=== PATIENT | male | born 2000 | race Caucasian/White ===

== ENCOUNTER 2021-01-14 23:26 | Emergency (ER) | payer OTHER ==
[~2021-01-14] VITALS: Ht 185.4 cm; Wt 79.4 kg
[2021-01-14 23:33] VITALS: BP_SYST 132
--- NOTE | 2021-01-14 23:33 | NUR ---
Patient to ER bed 2 to gown for evaluation. Side rails up. Report given to KAREEM DELACRUZ .
--- NOTE | 2021-01-14 23:49 | NUR ---
DR. HOLMAN AT BEDSIDE FOR EVALUATION.
--- NOTE | 2021-01-14 23:50 | NUR ---
Pt BIB family to ED C/O abrupt onset of periumbilical pain with sitting on the commode urinating at home approximately 10 minutes prior to ED arrival. Pain is sharp, radiates through to his spine, and also radiates straight down into the infraumbilical area. Pain was initially 8 out of 10, and is at about 5 out of 10 now: While it persists, it has declined in intensity. It is accompanied by nausea and mild dizziness. Patient has had several instances of similar pain in the past, usually with prolonged sitting. However, his pain would last seconds to a few minutes
--- NOTE | 2021-01-14 23:58 | NUR ---
Blood for labwork drawn by pit laborer. Patient tolerated well.
[2021-01-15] MEDS ORDERED: ONDANSETRON 4 MG ODT TAB PO ONE
[2021-01-15] MEDS ORDERED: DICYCLOMINE HCL 10 MG/5 ML SOLUTION PO ONE
[2021-01-15] MEDS ORDERED: LIDOCAINE VISCOUS 2%, 15 ML UDC MM ONE
[2021-01-15] MEDS ORDERED: MAG-AL HYDROX/SIMETH 30 ML UDC PO ONE
--- NOTE | 2021-01-15 | NUR ---
MEDICATION ADMINISTERED ORDERED.
[2021-01-15 00:15] LABS: BASOPHILS # (AUTO) 0.1 K/uL (0.0-0.2); BASOPHILS % (AUTO) 1.1 % (0.0-2.0); EOSINOPHILS # (AUTO) 0.2 K/uL (0.0-0.4); EOSINOPHILS % (AUTO) 2.9 % (0.0-4.0); HEMATOCRIT 43.2 % (36-54); HEMOGLOBIN 14.9 g/dL (14.0-18.0); LYMPHOCYTES # (AUTO) 1.4 K/uL (1.0-5.5); LYMPHOCYTES % (AUTO) 21.5 % (20.5-51.5); MEAN CORPUSCULAR HEMOGLOBIN 30 pg (27-31); MEAN CORPUSCULAR HGB CONC 35 % (32-36); MEAN CORPUSCULAR VOLUME 87 fL (79.0-98.0); MONOCYTES # (AUTO) 0.8 K/uL (0.0-1.0); MONOCYTES % (AUTO) 11.7 % (1.7-9.3); NEUTROPHILS # (AUTO) 4.2 K/uL (1.8-7.7); NEUTROPHILS % (AUTO) 62.8 % (40.0-70.0); PLATELET COUNT (AUTO) 144 K/uL (130-430); RED BLOOD CELL COUNT(AUTO) 4.94 MIL/uL (4.2-6.2); RED CELL DISTRIBUTION WIDTH 12.6 % (9.0-15.0); WHITE BLOOD COUNT (AUTO) 6.6 K/uL (4.8-10.8)
[2021-01-15 00:22] LABS: CALCIUM 9.2 mg/dL (8.4-11.0); CREATININE 1.3 mg/dL (0.55-1.30); POTASSIUM 3.8 mmol/L (3.5-5.1)
[2021-01-15 00:28] LABS: TOTAL BILIRUBIN 0.3 mg/dL (0.0-1.0)
--- NOTE | 2021-01-15 01:00 | NUR ---
VSS no s/s of acute distress Resting on gurney rails up
[2021-01-15] MEDS ORDERED: DICY10CA13 PO (01:40)
[2021-01-15 01:50] VITALS: BP_SYST 132
--- NOTE | 2021-01-15 01:50 | NUR ---
Patient given written and verbal discharge instructions and verbalizes understanding. ER MD discussed with patient the results and treatment provided. Patient in stable condition. ID arm band removed. Rx of Dicyclomine given. Patient educated on pain management and to follow up with PMD. Pain Scale 0/10 Opportunity for questions provided and answered. Medication side effect fact sheet provided.
== END 2021-01-15 01:50 | disposition home or self-care (01) ==
LOC: SED 23:26
DX: R10.33 Periumbilical pain (principal); R42 Dizziness and giddiness
CPT/HCPCS: 36415; 80053; 83690; 85025; 99284; J2001; Q0162